=== PATIENT | male | born 1945 | race Caucasian/White ===

== ENCOUNTER 2017-05-25 21:29 | Emergency (ER) | payer MEDICARE, OTHER ==
[~2017-05-25] VITALS: Ht 190.5 cm; Wt 118.0 kg
[~2017-05-25 21:29] MED LIST: ASPI-973 PO; ATOR80TA77 PO; CHOL100043 PO; FINA5TAB9 PO; METO25TA6 PO; MULT1CAP33 PO; NIAC1CAP PO; NITR0.4T SL; OMEP20CA11 PO; RANI150C4 PO
[2017-05-25 21:43] VITALS: BP 195/97; PULSE 63; RESP 18; O2SAT 100
--- NOTE | 2017-05-25 21:58 | ED.REPORT ---
HPI-Chest Pain 40 and Over Date of Service May 25, 2017 ED Provider: Arron Chavira Patient is a 72 year old male with a hx of HTN and CT with stent placement x2 on Plavix who presents to the ED complaining of intermittent, momentary stabbing , L sided chest pain onset 1400 today. His pain is not modified by breathing. Associated symptoms include belching. He denies SOB, nausea, vomiting, diaphoresis, productive cough, or any other symptoms. He denies strain or trauma but he has been re-doing a bathroom lately. This pain does not feel like the pain he had when he had a heart attack previously. Nursing Notes Stated Complaint: CHEST PAIN Chief Complaint: Chest Pain Nursing Notes Reviewed: Yes Allergies: Coded Allergies: tamsulosin (Verified Allergy, Mild, Lethargic; dizzy, 06/29/16) Scheduled Aspirin (Aspirin) 81 Mg Tablet 81 MG PO HS Atorvastatin Calcium (Atorvastatin Calcium) 80 Mg Tablet 80 MG PO HS Cholecalciferol (Vitamin D3) (Vitamin D) 1,000 Unit Tablet 1,000 UNIT PO QAM Finasteride (Finasteride) 5 Mg Tablet 5 MG PO HS Metoprolol Tartrate (Metoprolol Tartrate) 25 Mg Tablet 12.5 MG PO BID Multivitamin (Multivitamins) 1 Each Capsule 1 EACH PO QAM Niacin (Inositol Niacinate) (Niacin 500 mg Capsule) 500 Mg Capsule 500 MG PO BID Omeprazole (Omeprazole) 20 Mg Capsule.dr 20 MG PO HS Scheduled PRN Naproxen (Naprosyn) 500 Mg Tablet 500 MG PO BID PRN PRN For Pain Nitroglycerin SL (Nitrostat) 0.4 Mg Tablet 0.4 MG SL Q5MIN PRN PRN For Chest Pain Ranitidine (Ranitidine) 150 Mg Capsule 150 MG PO DAILY PRN PRN For Indigestion General Time Seen by MD: 21:57 Chief Complaint Chest pain Hx Obtained From: Patient, Spouse Arrived By: Walk-in Sudden in Onset?: Yes Onset Occurred: 5 - 8 hours ago Symptom Duration: Intermittent Location: : Chest left Quality: Stabbing Radiation: : Does not radiate Context Related History: Reports: Myocardial infarction Risk Factors )( CAD Risk Stratification Known CAD Risk factors N/A )( TAD Risk Stratification HypertensionNo Risk factors reviewed )( PE Risk Stratification No Immobilization, No Previous DVT, No Previous PE Risk factors reviewed Past Medical History Past Medical History CT with stents Enlarged prostate transglobal amnesia MRSA Reports: Coronary artery disease, GERD, Hypertension Past Surgical History Cardiac cath Cardiac stents x2 Reports: CABG Smoking History Former Smoker Social History Alcohol Use: 1-3 per day Drug Use: Denies drug use Other Social History: Good social support, Ambulatory Status Independent Review of Systems Respiratory: Denies: Prod cough, clear, Shortness of breath Cardiovascular: Reports: Chest pain GI: Reports: Belching, Denies: Nausea, Vomiting Skin: Denies Diaphoresis Complete sys rev & neg: except as marked. Physical Exam Initial Vital Signs Vital Signs (First) Date Time Temp Pulse Resp B/P Pulse Ox O2 Delivery O2 Flow Rate FiO2 05/25/17 21:43 36.2 63 18 195/97 100 Room Air Initial VS: Reviewed Head / Eyes: Atraumatic, Normocephalic Skin: Warm, Dry Neurologic: Alert, Oriented, Nonfocal Psychiatric: Mood/affect normal, Behavior normal, Normal thought content General/Constitutional: Awake, Alert, No acute distress, Well appearing, Well developed Respiratory / Chest: Breath sounds NL, Breath sounds = bilat, No respiratory distress Cardiovascular: Heart rate NL, Regular rhythm, Heart sounds NL, No rubs Abdomen: Soft, Non-tender Neck: Supple, Full range of motion, No JVD Lower Extremity / Pelvis / MS: No edema Interpretation & Diagnostics Lab Results Interpretation Result Diagram: 05/25/17223105/25/172231 Test 05/25/17 22:32 White Blood Count 6.7th/mm3 (3.8-10.1) Red Blood Count 4.48mil/mm3 (4.40-5.80) Hemoglobin 14.9g/dL (13.8-17.2) Hematocrit 43.6% (41.0-50.0) Mean Corpuscular Volume 97.3fL (81-100) Mean Corpuscular Hemoglobin 33.3pg (27.0-35.0) Mean Corpuscular Hemoglobin Concent 34.2% (32.0-37.0) Red Cell Distribution Width 13.0% (12.3-15.4) Platelet Count 200bil/L (150-400) Neutrophils (%) (Auto) 55.8% (40-74) Lymphocytes (%) (Auto) 29.3% (14-46) Monocytes (%) (Auto) 11.6% (4-12) Eosinophils (%) (Auto) 1.7% (0-5) Basophils (%) (Auto) 1.4% (0-3) Sodium Level 140mEq/L (134-144) Potassium Level 4.2mEq/L (3.5-5.2) Chloride Level 103mEq/L (97-108) Carbon Dioxide Level 26mmol/L (18-29) Blood Urea Nitrogen 20mg/dL (8-27) Creatinine 0.81mg/dL (0.76-1.27) Estimat Glomerular Filtration Rate 100mL/min (>59) Glucose Level 131mg/dL (60-99) Calcium Level 9.3mg/dL (8.5-10.1) Magnesium Level 2.2mg/dL (1.6-2.6) Total Bilirubin 0.5mg/dL (0.0-1.2) Aspartate Amino Transf (AST/SGOT) 22U/L (0-50) Alanine Aminotransferase (ALT/SGPT) 26U/L (0-44) Alkaline Phosphatase 89U/L (25-160) Troponin T 0.010ug/L (0.0-0.011) Total Protein 7.5g/dL (6.4-8.4) Albumin 4.3g/dL (3.4-5.0) Hold Rivera Top Tube Received (Received) ECG Interpretation ECG Interpretation: sinus rate 57 abnormal R wave progression, early transition LVH Time: 22:07 Interpreted by: ED physician X-Ray Chest Interpretation Chest Xray Interpretation: Negative View: Portable, 1 view Interpretation / Wet Read by: Interpret - ED physician Re-Eval/Medical Decision Med Decision/Clinical Course 9-year-old with known coronary disease and a prior CT resulting in an urgent cath and stenting, presents with a sharp lancinating momentary pain several times over the course of the evening. This pain is not positional, movement induced, rub size induced. It is not present at the moment. No GI symptoms associated. No cardiovascular symptoms associated EKGs unchanged/unremarkable. Low likelihood that this is cardiac pain specifically. Home with Naprosyn and follow up with PCP. Prompt return of any prolonged pain, shortness of breath, or other associated symptoms occur. Time of Eval: 00:03 Re-Evaluation/Progress Note: Discussed plan for discharge. Patient understands and agrees with plan. All questions addressed at this time. Counseled Regarding: Diagnosis, Lab results, Need for follow-up, When/why to return to ED Discharge & Departure Primary Impression: Non-cardiac chest pain Disposition: Home Discharge Condition All VS Reviewed: Yes Condition: Improved Additional Instructions: The sharp, intermittent character of this pain suggests it is musculoskeletal in origin. Naprosyn twice daily if needed. Your labs and cardiogram are reassuring Follow-up with your doctor in the office. Return if you have any prolonged pain, shortness of breath, or other new symptoms of concern. Referrals: Kathi Lewis MD (PCP) Scribe Attestation Portions of this note were transcribed by Adrienne Carver. I, Dr. Chavira personally performed the history, physical exam and medical decision-making; I reviewed and confirmed the accuracy of the information in the transcribed note. Signed by: Adrienne Carver 05/26/2017, 0004 copies to: Kathi Lewis MD, Christopher W MD May 25, 2017 21:58 ADRIENNE CARVER May 25, 2017 22:11
[2017-05-25 23:12] LABS: BASOPHILS % (AUTO) 1.4 % (0-3); EOSINOPHILS % (AUTO) 1.7 % (0-5); MONOCYTES % (AUTO) 11.6 % (4-12); Mean Corpuscular Hemoglobin 33.3 pg (27.0-35.0); Mean Corpuscular Volume 97.3 fL (81-100); NEUTROPHILS % (AUTO) 55.8 % (40-74); Platelet Count 200 bil/L (150-400)
[2017-05-25 23:22] LABS: TROPONIN T 0.01 ug/L (0.0-0.011)
[2017-05-25 23:33] LABS: Magnesium 2.2 mg/dL (1.6-2.6)
[2017-05-26] MEDS ORDERED: NAPR500T PO
[2017-05-26 00:15] VITALS: BP 172/84; PULSE 76; RESP 20; O2SAT 100
--- NOTE | 2017-05-26 08:35 | DRSVH ---
PROCEDURE: X-RAY CHEST ONE VIEW, PORTABLE ([id number]) INDICATIONS: CHEST PAIN TECHNIQUE: One view of the chest was acquired. COMPARISON: [facility], CR, XR CHEST 1VW (PORTABLE), 08/05/2015, 15:53. [facility], CR, XR CHEST 1VW (PORTABLE), 06/29/2016, 12:49. FINDINGS: Surgical changes and devices: None. Lungs and pleura: No pleural effusions or pneumothorax. Lungs are clear. Mediastinum: Mediastinal contours appear normal. Heart size is normal. Bones and chest wall: No suspicious bony lesions. Overlying soft tissues appear unremarkable. IMPRESSION: No acute disease or interval change Dictated by: Modesto Emanuel M.D. on 05/26/2017 at 8:33 Approved by: Modesto Emanuel M.D. on 05/26/2017 at 8:34
== END 2017-05-26 00:16 | disposition home or self-care (01) ==
LOC: SED 21:29
DX: R07.89 Other chest pain (principal); R14.2 Eructation; I11.9 Hypertensive heart disease without heart failure; I25.10 Atherosclerotic heart disease of native coronary artery without angina pectoris; I25.2 Old myocardial infarction; K21.9 Gastro-esophageal reflux disease without esophagitis; E78.5 Hyperlipidemia, unspecified; Z95.1 Presence of aortocoronary bypass graft; Z95.5 Presence of coronary angioplasty implant and graft; Z87.891 Personal history of nicotine dependence; Z79.82 Long term (current) use of aspirin; Z88.8 Allergy status to other drugs, medicaments and biological substances
CPT/HCPCS: 36415; 71010; 80053; 83735; 84484; 85025; 93005; 96374; 99285; J1885